=== PATIENT | male | born 1990 | race African-American/Black ===

== ENCOUNTER → 2018-10-04 | Outpatient (CLI) | payer OTHER ==
--- NOTE | 2018-10-04 14:50 | REP ---
RIGHT 5TH DIGIT, FOUR VIEWS: Four views of the right 5th digit performed. There is no acute fracture, dislocation or intrinsic bone disease. IMPRESSION: No fracture or dislocation. Electronically Signed by Fernandez Schulz MD 10/04/2018 04:23 P
== END ==
LOC: M RAD 12:58
PROVIDERS: ATTEND Surgery
DX: S60.051A Contusion of right little finger without damage to nail, initial encounter (principal); X58.XXXA Exposure to other specified factors, initial encounter; Y92.89 Other specified places as the place of occurrence of the external cause